=== PATIENT | male | born 1945 | race Two or more races ===

== ENCOUNTER → 2017-05-15 | Outpatient (CLI) | payer MEDICARE ==
[~2017-05-15] MED LIST: OMNIPAQUE 350 MG/ML, 75ML BOTTLE ONE
== END | disposition home or self-care (01) ==
LOC: CFH 09:44
PROVIDERS: ATTEND Internal Medicine
DX: R91.8 Other nonspecific abnormal finding of lung field (principal)
CPT/HCPCS: 71260; Q9967

== ENCOUNTER → 2017-05-30 | Outpatient (CLI) | payer MEDICARE ==
[~2017-05-30] MED LIST changes: +ATOR20TA9 PO; +LISI40TA PO; +MELO7.5T31 PO; -OMNIPAQUE 350 MG/ML, 75ML BOTTLE ONE
== END | disposition home or self-care (01) ==
LOC: RAD 08:34 → EDSTATUS 13:00
PROVIDERS: ATTEND Internal Medicine
DX: R91.8 Other nonspecific abnormal finding of lung field (principal); M47.894 Other spondylosis, thoracic region
CPT/HCPCS: 71250

== ENCOUNTER 2017-06-04 11:15 | Day surgery (SDC) | payer MEDICARE, OTHER ==
[~2017-06-04] VITALS: Ht 162.6 cm; Wt 81.7 kg
[~2017-06-04 11:15] MED LIST changes: -ATOR20TA9 PO; +DEXAMETHASONE 4 MG/ML, 1ML ONE; +GLYCOPYRROLATE 0.2MG/1ML, 5ML ONE; -LISI40TA PO; -MELO7.5T31 PO; +NEOSTIGMINE 1 MG/ML, 10ML ONE; +ONDANSETRON 2MG/ML, 2ML ONE; +PROPOFOL 10 MG/ML, 20ML ONE; +PROPOFOL 10 MG/ML, 50ML ONE; +ROCURONIUM 10 MG/ML ONE
[2017-06-04] MEDS ORDERED: ATOR20TA9 PO (12:01)
[2017-06-04] MEDS ORDERED: LISI40TA PO (12:01)
[2017-06-04] MEDS ORDERED: MELO7.5T31 PO (12:01)
[2017-06-04] MEDS ORDERED: LACTATED RINGERS 1,000 ML IV SCH (12:01)
[2017-06-04 12:14] VITALS: BP 143/73
[2017-06-04 12:47] LABS: BLOOD UREA NITROGEN 21 mg/dL (7-18)
[2017-06-04 12:50] LABS: ASPARTATE AMINO TRANSFERASE 24 U/L (15-37)
[2017-06-04] MEDS ORDERED: FENTANYL PF 100 MCG/2ML IV PRN (14:00)
[2017-06-04] MEDS ORDERED: ONDANSETRON 2MG/ML, 2ML IVPush PRN (14:00)
[2017-06-04] MEDS ORDERED: ACETAMINOPHEN 325 MG TABLET PO PRN (14:00)
[2017-06-04] MEDS ORDERED: MEPERIDINE/PF 25MG/0.5ML IVPush PRN (14:00)
[2017-06-04] MEDS ORDERED: PROMETHAZINE 25 MG/ML, 1ML IV PRN (14:00)
[2017-06-04] MEDS ORDERED: ALBUTEROL/IPRATROPIUM 2.5MG/0.5MG, 3 ML NPPB PRN (14:00)
[2017-06-04] MEDS ORDERED: OXYcodone 5 MG/5 ML ORAL.SOL UDC PO PRN (14:00)
[2017-06-04] MEDS ORDERED: MIDAZOLAM 1 MG/ML, 2ML IV PRN (14:00)
[2017-06-04] MEDS ORDERED: HYDROmorphone 1 MG/ML, 1ML IV PRN (14:00)
[2017-06-04] MEDS ORDERED: ACETAMINOPHEN 650 MG/20.3 ML UDC ONE (15:22)
[2017-06-04] MEDS ORDERED: OXYcodone 5 MG/5 ML ORAL.SOL UDC ONE (15:23)
== END 2017-06-04 17:10 ==
LOC: MERGE 11:15 → OUT 11:15
PROVIDERS: ATTEND Internal Medicine
DX: J98.4 Other disorders of lung (principal); Z88.0 Allergy status to penicillin
CPT/HCPCS: 31623; 31624; 31627; 31628; 31629; 36415; 71010; 76000; 80053; 88112; 88172; 88173; 88177; 88305; 88333; 93005; J1100; J2250; J2370; J2405; J2704; J2710; J3010; J3490; J7120

== ENCOUNTER → 2017-09-30 | Outpatient (CLI) | payer MEDICAID, OTHER ==
[~2017-09-30] MED LIST changes: +ATOR20TA9 PO; -DEXAMETHASONE 4 MG/ML, 1ML ONE; -GLYCOPYRROLATE 0.2MG/1ML, 5ML ONE; +LISI40TA PO; +MELO7.5T31 PO; -NEOSTIGMINE 1 MG/ML, 10ML ONE; +OMNIPAQUE 350 MG/ML, 75ML BOTTLE ONE; -ONDANSETRON 2MG/ML, 2ML ONE; -PROPOFOL 10 MG/ML, 20ML ONE; -PROPOFOL 10 MG/ML, 50ML ONE; -ROCURONIUM 10 MG/ML ONE
== END | disposition home or self-care (01) ==
LOC: CFH 13:34
PROVIDERS: ATTEND Internal Medicine
DX: R91.8 Other nonspecific abnormal finding of lung field (principal)
CPT/HCPCS: 71260; 82565; Q9967